=== PATIENT | male | born 1975 | race Caucasian/White ===

== ENCOUNTER 2020-10-06 12:32 | Inpatient (IN) | payer MEDICAID ==
[~2020-10-06] VITALS: Ht 162.6 cm; Wt 47.1 kg
[2020-10-06] MEDS ORDERED: SODIUM CHLORIDE 0.9% 500 ML IV ONE (12:45)
[2020-10-06 13:29] LABS: Basophils # (auto) 0 10 ^3/uL (0-0.2); Eosinophils # (auto) 0 10 ^3/uL (0-0.8); Eosinophils % (auto) 0.1 % (0.0-7.0); Monocytes % (auto) 4.4 % (0.0-12.0)
[2020-10-06 13:31] LABS: Basophils % (auto) 0.3 % (0.0-2.0); Hemoglobin 16.2 g/dL (13.5-17.5); Lymphocytes % (auto) 8.2 % (10.0-50.0); Mean Corpuscular Hemoglobin 31.6 pg (28.0-32.0); Mean Corpuscular Hgb Conc. 35.1 g/dL (32.0-36.0); Monocytes # (auto) 0.5 10 ^3/uL (0-1.3); Neutrophils # (auto) 10.6 10 ^3/uL (1.6-8.6); Platelet Count (auto) 543 10^3/uL (140-450); Red Blood Cells 5.11 10^6/uL (4.5-5.90); Red Cell Distribution Width 13.9 % (11.8-14.3); White Blood Cell 12.2 10^3/uL (4.4-10.8)
[2020-10-06 13:52] LABS: Albumin 3.3 g/dL (3.4-5.0); Calcium 9.2 mg/dL (8.5-10.1); Potassium 3.7 mmol/L (3.5-5.1)
[2020-10-06 13:54] LABS: BUN/Creatinine Ratio 13.2
[2020-10-06 13:57] LABS: Bilirubin, Total 0.5 mg/dL (0.2-1.0); Total Protein 9.3 g/dL (6.4-8.2)
[2020-10-06] MEDS ORDERED: ACETAMINOPHEN 325 MG TAB PO ONE (17:45)
[2020-10-06 17:54] LABS: Urine Bacteria NONE SEEN /hpf (None Seen); Urine Blood Negative /uL (Negative); Urine Specific Gravity 1.028 (1.001-1.035); Urine WBC 2 /hpf (0 - 3)
[2020-10-06] MEDS ORDERED: levoFLOXacin 500MG 100 ML IV ONE (19:15)
[2020-10-06] MEDS ORDERED: VANCOMYCIN PER PHARMACY 1,000 MG IV SCH (20:30)
[2020-10-06] MEDS ORDERED: ALUM & MAG HYDROX-SIMETH LIQ(MAALOX) 30 ML PO PRN (20:30)
[2020-10-06] MEDS ORDERED: METOCLOPRAMIDE HCL 5MG/ml INJ 2ml VIAL IV PRN (20:30)
[2020-10-06] MEDS ORDERED: MORPHINE SULF INJ 2 MG/ML SYRINGE 1ML IV PRN ×3 (20:30)
[2020-10-06] MEDS ORDERED: ACETAMINOPHEN 325 MG TAB PO PRN (20:30)
[2020-10-06] MEDS ORDERED: HYDROcodone-ACET 5/325MG TAB PO PRN (20:30)
[2020-10-06] MEDS ORDERED: DOCUSATE SOD 100 MG CAP PO PRN (20:30)
[2020-10-06] MEDS: SODIUM CHLORIDE 0.9% 1,000 ML IV SCH (20:30)
[2020-10-06] MEDS ORDERED: NITROGLYCERIN 0.4 MG SL TAB SL PRN ×2 (20:30)
[2020-10-06] MEDS: VANCOMYCIN 1GM/250ML 250 ML IV SCH (21:30)
[2020-10-06 22:22] LABS: Cholesterol 141 mg/dL (< 200); HDL Cholesterol 47 mg/dL (40-59); LDL Cholesterol 86 mg/dL (< 100); Triglycerides 80 mg/dL (< 150)
[2020-10-06 23:24] LABS: Alcohol, Urine < 3.0 mg/dL (0-10); Amphetamine Screen, Urine NEGATIVE (NEGATIVE); Barbiturate Scree,Urine NEGATIVE (NEGATIVE); Benzodiazephine Screen, Urine NEGATIVE (NEGATIVE); Cannabinoid Screen, Urine POSITIVE (NEGATIVE); Cocaine Screen, Urine NEGATIVE (NEGATIVE); Phencyclidine Screen, Urine NEGATIVE (NEGATIVE)
[2020-10-06 23:31] LABS: Opiate Scree,Urine NEGATIVE (NEGATIVE)
[2020-10-06 23:39] LABS: INR 1.08 (0.9-1.15)
[2020-10-06] MEDS ORDERED: LINEZOLID 600MG/300ML 300 ML IV ONE (23:48)
[2020-10-07] MEDS: VANCOMYCIN 1GM/250ML 250 ML IV SCH ×3 (05:00→14:04)
[2020-10-07] MEDS: SODIUM CHLORIDE 0.9% 1,000 ML IV SCH ×3 (05:54→14:10)
[2020-10-07 06:33] LABS: Basophils # (auto) 0 10 ^3/uL (0-0.2); Basophils % (auto) 0.4 % (0.0-2.0); Eosinophils # (auto) 0.1 10 ^3/uL (0-0.8); Eosinophils % (auto) 1.2 % (0.0-7.0); Hematocrit 36.8 % (41.0-53.0); Hemoglobin 12.4 g/dL (13.5-17.5); Lymphocytes # (auto) 1.3 10 ^3/uL (0.4-5.4); Lymphocytes % (auto) 15.8 % (10.0-50.0); Mean Corpuscular Hemoglobin 30.3 pg (28.0-32.0); Mean Corpuscular Hgb Conc. 33.6 g/dL (32.0-36.0); Monocytes # (auto) 0.7 10 ^3/uL (0-1.3); Monocytes % (auto) 8.6 % (0.0-12.0); Neutrophils # (auto) 5.9 10 ^3/uL (1.6-8.6); Platelet Count (auto) 421 10^3/uL (140-450); Red Blood Cells 4.09 10^6/uL (4.5-5.90); Red Cell Distribution Width 13.8 % (11.8-14.3); White Blood Cell 7.9 10^3/uL (4.4-10.8)
[2020-10-07 06:49] LABS: BUN/Creatinine Ratio 17.9; Calcium 7.9 mg/dL (8.5-10.1); Potassium 3.7 mmol/L (3.5-5.1)
[2020-10-07] MEDS ORDERED: LEVOFLOXACIN 500 MG IV SCH (10:00)
[2020-10-07] MEDS: LINEZOLID 600MG/300ML 300 ML IV SCH (12:26)
[2020-10-07] MEDS ORDERED: SODIUM CHLORIDE 0.9% 1,000 ML IV SCH (20:00)
[2020-10-07 22:00] VITALS: BP 93/54
[2020-10-08] MEDS: LINEZOLID 600MG/300ML 300 ML IV SCH ×2 (00:32→10:02)
[2020-10-08 05:00] VITALS: BP 98/55
[2020-10-08 06:39] LABS: INR 0.96 (0.9-1.15); Partial Thromboplastin Time 28.6 sec (23.0-31.2)
[2020-10-08 06:43] LABS: Potassium 4.1 mmol/L (3.5-5.1)
[2020-10-08 06:50] LABS: Calcium 7.6 mg/dL (8.5-10.1)
[2020-10-08 09:00] VITALS: BP 93/60
[2020-10-08 09:26] LABS: Basophils # (auto) 0 10 ^3/uL (0-0.2); Basophils % (auto) 0.8 % (0.0-2.0); Eosinophils # (auto) 0.1 10 ^3/uL (0-0.8); Hematocrit 38.6 % (41.0-53.0); Hemoglobin 13.1 g/dL (13.5-17.5); Lymphocytes # (auto) 1.3 10 ^3/uL (0.4-5.4); Lymphocytes % (auto) 27.6 % (10.0-50.0); Mean Corpuscular Hemoglobin 30.5 pg (28.0-32.0); Mean Corpuscular Hgb Conc. 33.9 g/dL (32.0-36.0); Mean Corpuscular Volume 90.2 fL (80.0-100.0); Monocytes # (auto) 0.4 10 ^3/uL (0-1.3); Monocytes % (auto) 9.3 % (0.0-12.0); Neutrophils # (auto) 2.7 10 ^3/uL (1.6-8.6); Neutrophils % (auto) 59.3 % (37.0-80.0); Nucleated Red Blood Cells % 0.1 %; Platelet Count (auto) 435 10^3/uL (140-450); Red Blood Cells 4.28 10^6/uL (4.5-5.90); Red Cell Distribution Width 14.1 % (11.8-14.3); White Blood Cell 4.6 10^3/uL (4.4-10.8)
[2020-10-08] MEDS: ENOXAPARIN SOD 40 MG/0.4 ML SYRINGE SC SCH ×2 (10:03→10:10)
[2020-10-08 13:00] VITALS: BP 96/59
[2020-10-08] MEDS ORDERED: LIDOCAINE 1% (LOCAL ANESTH.) PF 5ml SDV ID ONE (13:15)
[2020-10-08 15:19] VITALS: BP 96/59
[2020-10-08] MEDS ORDERED: SODIUM CHLOR 0.9% PF (SALINE LOCK) 10ML VIAL/SYR IV SCH (22:00)
== END 2020-10-08 20:39 | DRG 347 ==
LOC: ER 12:32 → EDBD 12:32 → OVERFLOW 12:33 → TELE-EAST 10-07 19:35
PROVIDERS: ADMIT Hospitalist; ATTEND Hospitalist
PROC: 02HV33Z Insertion of Infusion Device into Superior Vena Cava, Percutaneous Approach (ICD-10-PCS; principal; 2020-10-08)
DX: M48.061 Spinal stenosis, lumbar region without neurogenic claudication (principal); M51.26 Other intervertebral disc displacement, lumbar region; L89.213 Pressure ulcer of right hip, stage 3; R62.7 Adult failure to thrive; N39.0 Urinary tract infection, site not specified; E86.0 Dehydration; G82.20 Paraplegia, unspecified; Z20.822 Contact with and (suspected) exposure to COVID-19; Z88.8 Allergy status to other drugs, medicaments and biological substances; M86.651 Other chronic osteomyelitis, right thigh; L89.159 Pressure ulcer of sacral region, unspecified stage; Z74.01 Bed confinement status
CPT/HCPCS: 36415; 36569; 72192; 80048; 80053; 80061; 80202; 80307; 81001; 83036; 83605; 85025; 85610; 85652; 85730; 87040; 87077; 87086; 87186; 87205; 87426; 96365; 96366; 96368; G0378; J1956

== ENCOUNTER 2021-01-31 18:52 | Inpatient (IN) | payer MEDICAID ==
[~2021-01-31] VITALS: Ht 162.6 cm; Wt 50.0 kg
[2021-01-31] MEDS ORDERED: SODIUM CHLORIDE 0.9% 1,000 ML IV ONE (19:30)
[2021-01-31] MEDS ORDERED: VANCOMYCIN 1GM/250ML 250 ML IV ONE (19:30)
[2021-01-31] MEDS ORDERED: ACETAMINOPHEN 325 MG TAB PO ONE (20:00)
[2021-01-31] MEDS ORDERED: CLINDAMYCIN 600MG IV 50 ML IV ONE (21:00)
[2021-01-31 22:00] LABS: Basophils # (auto) 0.1 10 ^3/uL (0-0.2); Basophils % (auto) 0.5 % (0.0-2.0); Eosinophils # (auto) 0.1 10 ^3/uL (0-0.8); Eosinophils % (auto) 0.9 % (0.0-7.0); Hematocrit 34.1 % (41.0-53.0); Hemoglobin 11.9 g/dL (13.5-17.5); Lymphocytes # (auto) 1.1 10 ^3/uL (0.4-5.4); Lymphocytes % (auto) 6.9 % (10.0-50.0); Mean Corpuscular Hemoglobin 30.9 pg (28.0-32.0); Mean Corpuscular Hgb Conc. 34.9 g/dL (32.0-36.0); Mean Corpuscular Volume 88.5 fL (80.0-100.0); Monocytes % (auto) 6.6 % (0.0-12.0); Neutrophils % (auto) 85.1 % (37.0-80.0); Platelet Count (auto) 467 10^3/uL (140-450); Red Blood Cells 3.85 10^6/uL (4.5-5.90); Red Cell Distribution Width 14.2 % (11.8-14.3); White Blood Cell 15.2 10^3/uL (4.4-10.8)
[2021-01-31 22:14] LABS: Anion Gap 5 (5-15); Blood Urea Nitrogen 12 mg/dL (7-18); Calcium 7.8 mg/dL (8.5-10.1); Carbon Dioxide 32 mmol/L (21-32); Chloride 98 mmol/L (98-107); GFR African American 245 mL/min; GFR Non-African American 202 mL/min; Glucose 126 mg/dL (74-106); Potassium 3.4 mmol/L (3.5-5.1); Sodium 135 mmol/L (136-145)
[2021-01-31 22:29] LABS: Alanine Aminotransferase 15 U/L (16-61)
[2021-01-31 22:34] LABS: Alkaline Phosphatase 67 U/L (45-117); Aspartate Aminotransferase 17 U/L (15-37); Bilirubin, Total 0.2 mg/dL (0.2-1.0); Total Protein 7.1 g/dL (6.4-8.2)
[2021-01-31 23:45] LABS: Urine Bacteria NONE SEEN /hpf (None Seen); Urine Blood Negative /uL (Negative); Urine Mucus FEW (None Seen); Urine Specific Gravity 1.008 (1.001-1.035); Urine WBC 1 /hpf (0 - 3)
[2021-02-01] MEDS ORDERED: ALBUMIN 25% 100 ML IV ONE (01:30)
[2021-02-01] MEDS: levoFLOXacin 500MG 100 ML IV SCH (03:01)
[2021-02-01] MEDS ORDERED: MORPHINE SULF INJ 2 MG/ML SYRINGE 1ML IV PRN (03:45)
[2021-02-01] MEDS ORDERED: ONDANSETRON HCL 4 MG/2 ML VIAL IV PRN (03:45)
[2021-02-01] MEDS ORDERED: NITROGLYCERIN 0.4 MG SL TAB SL PRN (03:45)
[2021-02-01] MEDS ORDERED: ACETAMINOPHEN 325 MG TAB PO PRN (03:45)
[2021-02-01] MEDS ORDERED: HYDROcodone-ACET 5/325MG TAB PO PRN (03:45)
[2021-02-01] MEDS: CLINDAMYCIN 600MG IV 50 ML IV SCH ×3 (06:43→22:00)
[2021-02-01] MEDS: SODIUM CHLOR 0.9% PF (SALINE LOCK) 10ML VIAL/SYR IV SCH ×3 (06:43→22:00)
[2021-02-01 06:54] LABS: Basophils # (auto) 0.1 10 ^3/uL (0-0.2); Basophils % (auto) 0.5 % (0.0-2.0); Eosinophils # (auto) 0.2 10 ^3/uL (0-0.8); Eosinophils % (auto) 1.3 % (0.0-7.0); Hematocrit 38.4 % (41.0-53.0); Hemoglobin 12.9 g/dL (13.5-17.5); Lymphocytes # (auto) 1.3 10 ^3/uL (0.4-5.4); Lymphocytes % (auto) 10.6 % (10.0-50.0); Mean Corpuscular Hemoglobin 30.4 pg (28.0-32.0); Mean Corpuscular Hgb Conc. 33.6 g/dL (32.0-36.0); Mean Corpuscular Volume 90.2 fL (80.0-100.0); Monocytes # (auto) 0.6 10 ^3/uL (0-1.3); Monocytes % (auto) 5.2 % (0.0-12.0); Neutrophils # (auto) 9.9 10 ^3/uL (1.6-8.6); Neutrophils % (auto) 82.4 % (37.0-80.0); Platelet Count (auto) 435 10^3/uL (140-450); Red Blood Cells 4.25 10^6/uL (4.5-5.90); Red Cell Distribution Width 14.2 % (11.8-14.3)
[2021-02-01 07:14] LABS: Albumin 1.9 g/dL (3.4-5.0); Calcium 7.7 mg/dL (8.5-10.1); Potassium 3.7 mmol/L (3.5-5.1)
[2021-02-01 07:19] LABS: BUN/Creatinine Ratio 22.9; Bilirubin, Total 0.4 mg/dL (0.2-1.0); Total Protein 6.5 g/dL (6.4-8.2)
[2021-02-01] MEDS: ZINC SULFATE 220mg CAP or TAB PO SCH (10:00)
[2021-02-01] MEDS: ENOXAPARIN SOD 30 MG/0.3 ML SYRINGE SC SCH (10:00)
[2021-02-01] MEDS: FAMOTIDINE (10MG/ML) 2ML VL IV SCH ×2 (10:00→22:00)
[2021-02-01] MEDS: MULTIPLE VITAMIN TAB PO SCH (10:42)
[2021-02-01] MEDS: ASCORBIC ACID 500 MG TAB PO SCH ×2 (10:42→22:00)
[2021-02-01 10:52] VITALS: BP 104/63
[2021-02-01 11:36] VITALS: BP 104/63
[2021-02-01] MEDS ORDERED: LOPERAMIDE HCL 2 MG CAP PO PRN (12:15)
[2021-02-01] MEDS: LOPERAMIDE HCL 2 MG CAP PO PRN ×2 (12:17→19:53)
[2021-02-01 13:36] VITALS: BP 105/50
[2021-02-01 17:00] VITALS: BP 99/60
[2021-02-01 20:00] VITALS: BP 131/69
[2021-02-01 21:50] VITALS: BP_SYST 131; BP_SYST 97; BP_DIAS 63; BP_DIAS 69
[2021-02-02 05:11] VITALS: BP 115/60
[2021-02-02] MEDS: SODIUM CHLOR 0.9% PF (SALINE LOCK) 10ML VIAL/SYR IV SCH ×3 (05:49→22:00)
[2021-02-02] MEDS: CLINDAMYCIN 600MG IV 50 ML IV SCH ×3 (05:49→22:00)
[2021-02-02 05:52] LABS: Basophils # (auto) 0.1 10 ^3/uL (0-0.2); Basophils % (auto) 0.6 % (0.0-2.0); Eosinophils # (auto) 0.2 10 ^3/uL (0-0.8); Eosinophils % (auto) 2.9 % (0.0-7.0); Hematocrit 35.6 % (41.0-53.0); Hemoglobin 12.4 g/dL (13.5-17.5); Lymphocytes # (auto) 1.7 10 ^3/uL (0.4-5.4); Lymphocytes % (auto) 20.8 % (10.0-50.0); Mean Corpuscular Hemoglobin 30.7 pg (28.0-32.0); Mean Corpuscular Hgb Conc. 34.8 g/dL (32.0-36.0); Mean Corpuscular Volume 88.3 fL (80.0-100.0); Monocytes # (auto) 0.5 10 ^3/uL (0-1.3); Monocytes % (auto) 5.8 % (0.0-12.0); Neutrophils # (auto) 5.7 10 ^3/uL (1.6-8.6); Neutrophils % (auto) 69.9 % (37.0-80.0); Nucleated Red Blood Cells % 0.1 %; Platelet Count (auto) 510 10^3/uL (140-450); Red Blood Cells 4.04 10^6/uL (4.5-5.90); Red Cell Distribution Width 13.9 % (11.8-14.3); White Blood Cell 8.2 10^3/uL (4.4-10.8)
[2021-02-02 06:13] LABS: Albumin 1.8 g/dL (3.4-5.0); Calcium 7.5 mg/dL (8.5-10.1); Potassium 3.9 mmol/L (3.5-5.1)
[2021-02-02 06:19] LABS: BUN/Creatinine Ratio 16.1; Bilirubin, Total 0.3 mg/dL (0.2-1.0); Total Protein 6.1 g/dL (6.4-8.2)
[2021-02-02 07:50] VITALS: BP 109/76
[2021-02-02 09:00] VITALS: BP 109/76
[2021-02-02] MEDS: FAMOTIDINE (10MG/ML) 2ML VL IV SCH ×2 (09:03→22:00)
[2021-02-02] MEDS: levoFLOXacin 500MG 100 ML IV SCH (09:03)
[2021-02-02] MEDS: ASCORBIC ACID 500 MG TAB PO SCH ×2 (09:04→22:00)
[2021-02-02] MEDS: ZINC SULFATE 220mg CAP or TAB PO SCH (09:04)
[2021-02-02] MEDS: MULTIPLE VITAMIN TAB PO SCH (09:04)
[2021-02-02] MEDS: ENOXAPARIN SOD 30 MG/0.3 ML SYRINGE SC SCH (09:04)
[2021-02-02 12:48] VITALS: BP 104/70
[2021-02-02 16:41] VITALS: BP 128/85
[2021-02-02 22:00] VITALS: BP 102/67
[2021-02-03 05:36] VITALS: BP 112/59
[2021-02-03] MEDS: SODIUM CHLOR 0.9% PF (SALINE LOCK) 10ML VIAL/SYR IV SCH ×3 (06:00→21:25)
[2021-02-03] MEDS: CLINDAMYCIN 600MG IV 50 ML IV SCH ×2 (06:21→15:25)
[2021-02-03 08:10] VITALS: BP 97/55
[2021-02-03 09:19] VITALS: BP 97/55
[2021-02-03] MEDS: levoFLOXacin 500MG 100 ML IV SCH (09:58)
[2021-02-03] MEDS: ZINC SULFATE 220mg CAP or TAB PO SCH (09:59)
[2021-02-03] MEDS: ENOXAPARIN SOD 30 MG/0.3 ML SYRINGE SC SCH (10:00)
[2021-02-03] MEDS: MULTIPLE VITAMIN TAB PO SCH (10:00)
[2021-02-03] MEDS: ASCORBIC ACID 500 MG TAB PO SCH ×2 (10:00→21:25)
[2021-02-03 13:03] VITALS: BP 112/67
[2021-02-03 16:51] VITALS: BP 109/59
[2021-02-03] MEDS: AMPICILLIN & SULBACTAM SODIUM 3 GM in SODIUM CHL 0.9% 100 ML IV SCH (18:53)
[2021-02-03 22:00] VITALS: BP 121/60
[2021-02-03] MEDS ORDERED: InsuLIN REG 1unit/0.01ml Soln (100units/ml) ONE (22:01)
[2021-02-04] MEDS: AMPICILLIN & SULBACTAM SODIUM 3 GM in SODIUM CHL 0.9% 100 ML IV SCH ×5 (00:26→22:52)
[2021-02-04 05:00] VITALS: BP 96/43
[2021-02-04] MEDS: SODIUM CHLOR 0.9% PF (SALINE LOCK) 10ML VIAL/SYR IV SCH ×3 (06:00→22:15)
[2021-02-04 08:10] VITALS: BP 106/59
[2021-02-04 09:00] VITALS: BP 106/59
[2021-02-04] MEDS: MULTIPLE VITAMIN TAB PO SCH (09:20)
[2021-02-04] MEDS: ASCORBIC ACID 500 MG TAB PO SCH ×2 (09:20→22:00)
[2021-02-04] MEDS: ENOXAPARIN SOD 30 MG/0.3 ML SYRINGE SC SCH (09:20)
[2021-02-04] MEDS: ZINC SULFATE 220mg CAP or TAB PO SCH (09:20)
[2021-02-04 13:00] VITALS: BP 117/68
[2021-02-04 16:30] VITALS: BP 117/76
[2021-02-04 22:00] VITALS: BP 118/75
[2021-02-05 05:00] VITALS: BP 108/60
[2021-02-05] MEDS: SODIUM CHLOR 0.9% PF (SALINE LOCK) 10ML VIAL/SYR IV SCH ×3 (06:00→22:32)
[2021-02-05] MEDS: AMPICILLIN & SULBACTAM SODIUM 3 GM in SODIUM CHL 0.9% 100 ML IV SCH ×3 (06:48→18:05)
[2021-02-05 09:22] VITALS: BP 105/56
[2021-02-05] MEDS: ENOXAPARIN SOD 30 MG/0.3 ML SYRINGE SC SCH (10:00)
[2021-02-05] MEDS: ASCORBIC ACID 500 MG TAB PO SCH ×2 (10:00→22:00)
[2021-02-05] MEDS: MULTIPLE VITAMIN TAB PO SCH (10:00)
[2021-02-05] MEDS: ZINC SULFATE 220mg CAP or TAB PO SCH (10:00)
[2021-02-05 14:36] VITALS: BP 102/78
[2021-02-05 16:39] VITALS: BP 106/66
[2021-02-05 22:00] VITALS: BP 110/68
[2021-02-06] VITALS (7 sets, daily range): BP systolic 97–116; BP diastolic 57–83
[2021-02-06] MEDS: AMPICILLIN & SULBACTAM SODIUM 3 GM in SODIUM CHL 0.9% 100 ML IV SCH ×5 (00:03→23:49)
[2021-02-06] MEDS: SODIUM CHLOR 0.9% PF (SALINE LOCK) 10ML VIAL/SYR IV SCH ×3 (06:38→22:48)
[2021-02-06] MEDS: ASCORBIC ACID 500 MG TAB PO SCH ×2 (07:58→22:00)
[2021-02-06] MEDS: MULTIPLE VITAMIN TAB PO SCH (07:58)
[2021-02-06] MEDS: ZINC SULFATE 220mg CAP or TAB PO SCH (07:58)
[2021-02-06] MEDS: ENOXAPARIN SOD 30 MG/0.3 ML SYRINGE SC SCH (07:58)
[2021-02-07] MEDS: AMPICILLIN & SULBACTAM SODIUM 3 GM in SODIUM CHL 0.9% 100 ML IV SCH ×4 (05:45→23:45)
[2021-02-07 06:00] VITALS: BP 111/57
[2021-02-07] MEDS: SODIUM CHLOR 0.9% PF (SALINE LOCK) 10ML VIAL/SYR IV SCH ×3 (06:31→22:13)
[2021-02-07] MEDS: ENOXAPARIN SOD 30 MG/0.3 ML SYRINGE SC SCH (07:37)
[2021-02-07] MEDS: ZINC SULFATE 220mg CAP or TAB PO SCH (07:37)
[2021-02-07] MEDS: MULTIPLE VITAMIN TAB PO SCH (07:37)
[2021-02-07] MEDS: ASCORBIC ACID 500 MG TAB PO SCH ×2 (07:37→22:00)
[2021-02-07 08:20] VITALS: BP 115/77
[2021-02-07 09:00] VITALS: BP 115/77
[2021-02-07 11:23] LABS: Monocytes # (auto) 0.4 10 ^3/uL (0-1.3); Nucleated Red Blood Cells % 0.1 %
[2021-02-07 11:25] LABS: Basophils # (auto) 0 10 ^3/uL (0-0.2); Basophils % (auto) 0.8 % (0.0-2.0); Eosinophils # (auto) 0.1 10 ^3/uL (0-0.8); Eosinophils % (auto) 2.7 % (0.0-7.0); Hematocrit 38.4 % (41.0-53.0); Hemoglobin 13.1 g/dL (13.5-17.5); Lymphocytes # (auto) 1.8 10 ^3/uL (0.4-5.4); Lymphocytes % (auto) 33.5 % (10.0-50.0); Mean Corpuscular Hemoglobin 30.3 pg (28.0-32.0); Mean Corpuscular Volume 89.1 fL (80.0-100.0); Monocytes % (auto) 8.3 % (0.0-12.0); Neutrophils # (auto) 2.9 10 ^3/uL (1.6-8.6); Neutrophils % (auto) 54.7 % (37.0-80.0); Platelet Count (auto) 632 10^3/uL (140-450); Red Blood Cells 4.31 10^6/uL (4.5-5.90); Red Cell Distribution Width 14.2 % (11.8-14.3); White Blood Cell 5.3 10^3/uL (4.4-10.8)
[2021-02-07 11:36] LABS: Calcium 8.1 mg/dL (8.5-10.1); Potassium 4.4 mmol/L (3.5-5.1)
[2021-02-07 11:39] LABS: BUN/Creatinine Ratio 37.2; Magnesium 2.1 mg/dL (1.6-2.6)
[2021-02-07 13:00] VITALS: BP 94/66
[2021-02-07 17:00] VITALS: BP 120/75
[2021-02-07 22:00] VITALS: BP 117/80
[2021-02-08 05:00] VITALS: BP 108/58
[2021-02-08] MEDS: SODIUM CHLOR 0.9% PF (SALINE LOCK) 10ML VIAL/SYR IV SCH (05:42)
[2021-02-08] MEDS: AMPICILLIN & SULBACTAM SODIUM 3 GM in SODIUM CHL 0.9% 100 ML IV SCH (05:42)
[2021-02-08 08:00] VITALS: BP 107/65
[2021-02-08] MEDS: ZINC SULFATE 220mg CAP or TAB PO SCH (08:08)
[2021-02-08] MEDS: MULTIPLE VITAMIN TAB PO SCH (08:09)
[2021-02-08] MEDS: ENOXAPARIN SOD 30 MG/0.3 ML SYRINGE SC SCH (08:09)
[2021-02-08] MEDS: ASCORBIC ACID 500 MG TAB PO SCH (08:09)
[2021-02-08 09:00] VITALS: BP 107/65
== END 2021-02-08 12:00 | disposition left against medical advice (07) | DRG 720 ==
LOC: EDBD 18:52 → ER 18:52 → TELE 02-01 03:35 → TELE-WESTW 02-01 10:28 → WEST WING 02-03 20:01
PROVIDERS: ADMIT Nurse Practitioner Family; ATTEND Internal Medicine
PROC: 05H933Z Insertion of Infusion Device into Right Brachial Vein, Percutaneous Approach (ICD-10-PCS; principal; 2021-02-05)
PROC: B54MZZA Ultrasonography of Right Upper Extremity Veins, Guidance (ICD-10-PCS; 2021-02-05)
DX: A41.9 Sepsis, unspecified organism (principal); L89.44 Pressure ulcer of contiguous site of back, buttock and hip, stage 4; G82.20 Paraplegia, unspecified; E44.1 Mild protein-calorie malnutrition; E88.09 Other disorders of plasma-protein metabolism, not elsewhere classified; R62.7 Adult failure to thrive; E87.6 Hypokalemia; Z53.29 Procedure and treatment not carried out because of patient's decision for other reasons; Z20.822 Contact with and (suspected) exposure to COVID-19; B96.20 Unspecified Escherichia coli [E. coli] as the cause of diseases classified elsewhere; F12.90 Cannabis use, unspecified, uncomplicated; F17.210 Nicotine dependence, cigarettes, uncomplicated; Z59.0 Homelessness; Z86.14 Personal history of Methicillin resistant Staphylococcus aureus infection; Z88.1 Allergy status to other antibiotic agents; Z91.19 Patient's noncompliance with other medical treatment and regimen; Z68.1 Body mass index [BMI] 19.9 or less, adult
CPT/HCPCS: 36415; 71045; 80048; 80053; 81001; 83605; 83735; 83880; 84484; 85025; 87040; 87077; 87086; 87186; 87205; 87426; 93005; 96361; 96365; 96366; 96367; G0378; J1815; J1956; J3490; P9047

== ENCOUNTER 2021-02-15 18:24 | Emergency (ER) | payer MEDICAID ==
[~2021-02-15] VITALS: Ht 162.6 cm; Wt 63.5 kg
[2021-02-15] MEDS ORDERED: SODIUM CHLORIDE 0.9% 1,900 ML IV ONE (19:30)
[2021-02-15] MEDS ORDERED: DOXYCYCLINE 100MG/250ML 250 ML IV ONE (19:45)
[2021-02-15 21:49] LABS: Basophils # (auto) 0.1 10 ^3/uL (0-0.2); Basophils % (auto) 0.7 % (0.0-2.0); Eosinophils # (auto) 0.1 10 ^3/uL (0-0.8); Hemoglobin 13.6 g/dL (13.5-17.5)
[2021-02-15 21:53] LABS: Eosinophils % (auto) 0.6 % (0.0-7.0); Hematocrit 39.9 % (41.0-53.0); Lymphocytes # (auto) 2.4 10 ^3/uL (0.4-5.4); Mean Corpuscular Hemoglobin 30.2 pg (28.0-32.0); Mean Corpuscular Volume 88.6 fL (80.0-100.0); Monocytes % (auto) 9.6 % (0.0-12.0); Neutrophils # (auto) 6.5 10 ^3/uL (1.6-8.6); Neutrophils % (auto) 65.1 % (37.0-80.0); Platelet Count (auto) 534 10^3/uL (140-450); Red Blood Cells 4.51 10^6/uL (4.5-5.90); Red Cell Distribution Width 15.5 % (11.8-14.3)
[2021-02-15 21:55] LABS: Albumin 2.9 g/dL (3.4-5.0); Calcium 8.3 mg/dL (8.5-10.1); Potassium 4.1 mmol/L (3.5-5.1)
[2021-02-15 22:00] LABS: Bilirubin, Total 0.5 mg/dL (0.2-1.0); Total Protein 8.2 g/dL (6.4-8.2)
[2021-02-15] MEDS ORDERED: MERREM IV SCH (22:00)
[2021-02-15] MEDS ORDERED: MEROPENEM 1GM IVPB 100 ML IV SCH (22:00)
[2021-02-16] MEDS ORDERED: LOPERAMIDE HCL 2 MG CAP PO ONE (01:45)
[2021-02-16 06:00] VITALS: BP 126/80
== END 2021-02-16 08:05 | disposition home or self-care (01) ==
LOC: EDUNIT# 18:24 → EDBD 18:24 → ER 18:28
DX: L89.890 Pressure ulcer of other site, unstageable (principal); Z59.0 Homelessness; Z88.1 Allergy status to other antibiotic agents; Z91.013 Allergy to seafood; F17.210 Nicotine dependence, cigarettes, uncomplicated
CPT/HCPCS: 36415; 80053; 83605; 85025; 85049; 87040; 87086; 87205; 96365; 96366; 96367; 99285; J2185; J3490; 87077; 87186